=== PATIENT | female | born 1990 | race Caucasian/White ===

== ENCOUNTER 2024-04-13 12:54 | Emergency (ER) | payer OTHER, SELFPAY ==
[2024-04-13] VITALS (11 sets, daily range): BP systolic 113–144; BP diastolic 65–89; PULSE 83–115; RESP 13–22; TEMP 37.1; O2SAT 97–100; BMI 21.2
--- NOTE | 2024-04-13 13:25 | ED_ITS ---
HPI - Neuro Symptoms/Deficit General Chief Complaint: Neuro Symptoms/Deficit Stated Complaint: tingling, numbness in jaw, hx stroke Time Seen by Provider: 04/13/24 13:25 Source: patient Mode of arrival: Ambulatory History of Present Illness HPI Narrative: Patient past medical history of self-reported TIA, comes into the ED from home for evaluation of multiple complaints, she states that she has been experiencing head tingling and jaw tingling ongoing and persistent for the past week week and a half. States that it is intermittent nature, denies any actual weakness or blurry vision. Denies any headache, denies any weakness to lower or upper extremities. She denies any chest pain fever chills nausea vomiting abdominal pain or any other GI/ since time. 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 States that she does not have a neurologist or tmr teacher at this time due to the fact that she had moved here from outside of the [facility] about 1 and half years ago. Not on any blood thinners. At time of initial evaluation patient NIH of 0 no focal deficits On Anticoagulants: No Related Data Allergies Allergy/AdvReac Type Severity Reaction Status Date / Time Sulfa (Sulfonamide Allergy Hives Verified 04/13/24 12:57 Antibiotics) Review of Systems Review of Systems Narrative: HEENT: Denies headache, eye drainage, eye irritation, head trauma, sore throat, voice change, tingling sensation to the head and jaw Cardiovascular: Denies any chest pain, palpitations, shortness of breath, tachycardia Respiratory: Denies any shortness of breath, cough, wheeze, stridor GI/: Denies any abdominal pain, nausea, vomiting, diarrhea, bright red blood per rectum, melanotic stools, urinary frequency, urinary retention, dysuria, hematuria MSK: Denies any joint pain, muscle pains, swelling Skin: Denies any rashes, lesions, discoloration Neuro: Denies any headache, lightheadedness, dizziness, fainting, weakness Psych: Denies SI/HI Hematologic/Lymphatic On Anticoagulants: No Patient History Social History Smoking Status: Current every day smoker Smoking Status: Current every day smoker tobacco type: vaping alcohol intake frequency: a few times a month Substance Use Type: marijuana Exam Narrative Exam Narrative: General: Cooperative, comfortable, well-developed, not in acute distress HEENT: Normocephalic, atraumatic, PERRLA, normal sclera, eyelids normal, Neck: Active full range of motion, atraumatic Chest: Normal to inspection, negative crepitus, no overlying erythema ecchymosis Respiratory: Normal respiratory effort, not in acute respiratory distress, clear to auscultation bilaterally negative cough, wheeze, tachypnea, rhonchi, rales Cardiology: Regular rate rhythm negative gallop, murmur, rubs GI/: Normal to inspection, soft, nonrigid, no tenderness to palpation, exam deferred MSK: Full range of active range of motion of all 4 extremities, atraumatic Skin: No rashes lesions noted Neuro: Alert awake oriented x3, moves all 4 extremities spontaneously, cranial nerves intact, able to answer all questions appropriately follows commands appropriately, NIH of 0 no focal deficits Psych: Cooperative, negative suicidal or homicidal ideations Initial Vital Signs Initial Vital Signs: Vital Signs Temperature 98.8 F 04/13/24 12:57 Pulse Rate 115 H 04/13/24 12:57 Respiratory Rate 20 04/13/24 12:57 Blood Pressure 122/81 04/13/24 12:57 Pulse Oximetry 100 04/13/24 12:57 Oxygen Delivery Method Room Air 04/13/24 12:57 Course Orders Ordered: ED Orders 04/13/24 13:34 CT angio head and neck Stat CT head/brain wo con Stat XR chest 1V Stat EKG-12 Lead Stat 04/13/24 13:49 Basic Metabolic Panel Stat Complete Blood Count AUTO DIFF Stat MAG [Magnesium] Stat Prothrombin Time INR Stat Troponin I Stat Discontinued Medications Sodium Chloride (Normal Saline 0.9%) 1,000 mls @ 150 mls/hr IV CONT DARCY Last Infusion: 04/13/24 17:25 Dose: Infused Documented By: Admin: 04/13/24 14:10 Dose: 150 mls/hr Documented By: RUSTY Lorazepam (Lorazepam 2 Mg/Ml Inj) 0.5 mg IV NOW ONE Stop: 04/13/24 13:35 Last Admin: 04/13/24 14:09 Dose: 0.5 mg Documented By: RUSTY Vital Signs Vital signs: Vital Signs - 8 hr 04/13/24 12:57 04/13/24 13:58 04/13/24 14:00 Temperature 98.8 F Pulse Rate 115 H 111 H 99 H Respiratory Rate 20 22 13 Blood Pressure 122/81 Pulse Oximetry 100 100 100 Oxygen Delivery Method Room Air 04/13/24 14:00 04/13/24 14:30 04/13/24 14:30 Temperature Pulse Rate 98 H Respiratory Rate 21 Blood Pressure 134/89 127/85 Pulse Oximetry 100 Oxygen Delivery Method 04/13/24 15:00 04/13/24 15:30 04/13/24 15:47 Temperature Pulse Rate 109 H 96 H 111 H Respiratory Rate 15 Blood Pressure Pulse Oximetry 100 100 100 Oxygen Delivery Method 04/13/24 15:47 04/13/24 15:53 04/13/24 15:53 Temperature Pulse Rate 103 H Respiratory Rate 21 Blood Pressure 136/65 144/70 H Pulse Oximetry 100 Oxygen Delivery Method 04/13/24 16:00 04/13/24 16:00 04/13/24 16:30 Temperature Pulse Rate 90 97 H Respiratory Rate 14 Blood Pressure 125/74 Pulse Oximetry 99 100 Oxygen Delivery Method 04/13/24 16:30 04/13/24 17:00 04/13/24 17:00 Temperature Pulse Rate 83 Respiratory Rate 16 Blood Pressure 129/79 113/71 Pulse Oximetry 97 Oxygen Delivery Method Room Air MDM - Neuro Symptoms/Deficit Differential Diagnosis Differential diagnosis: Likely cerebrovascular accident and other (Electrolyte abnormality) Lab Data 04/13/24 13:49 04/13/24 13:49 Labs: Lab Results 04/13/24 Range/Units 13:49 WBC 7.3 (4.5-11.0) X10^3/uL RBC 4.50 (4.0-5.2) X10^6/uL Hgb 14.1 (12.0-16.0) g/dL Hct 41.7 (36-46) % MCV 92.6 (80-100) fL MCH 31.3 (26-34) PG MCHC 33.8 (30-36) % RDW 13.0 (11.6-14.8) % Plt Count 210 (150-400) X10^3/uL Neut % (Auto) 72.3 (50-75) % Lymph % (Auto) 21.5 L (25-40) % [place] % (Auto) 4.6 (3-14) % Eos % (Auto) 0.7 L (2-4) % Baso % (Auto) 0.9 (0-2) % Neut # (Auto) 5300 (6778-2026) /uL Lymph # (Auto) 1600 (5811-2045) /uL [place] # (Auto) 300 (0-900) /uL Eos # (Auto) 100 (0-450) /uL Baso # (Auto) 100 (0-100) /uL PT 12.4 (9.4-12.5) SECONDS INR 1.1 (0.9-1.3) Sodium 138 (137-145) mmol/L Potassium 3.7 (3.4-5.1) mmol/L Chloride 104 (98-107) mmol/L Carbon Dioxide 21 L (22-32) mmol/L BUN 10 (7-17) mg/dL Creatinine 0.84 (0.52-1.04) mg/dL Estimated GFR > 60 (>60) mL/min BUN/Creatinine Ratio 11.9 (6-22) Glucose 111 H (70-100) mg/dL Calcium 9.7 (8.4-10.2) mg/dL Magnesium 2.2 (1.6-2.3) mg/dL Troponin I < 0.012 (0.01-0.034) ng/mL Point of Care Testing Test Results Negative Urine Dip Bedside Urine Glucose Negative Bedside Urine Bilirubin - Negative Bedside Urine Ketone - Negative Urine Specific [place] 1.020 Bedside Urine Occult Blood - Negative Bedside Urine pH 6.0 Bedside Urine Protein - Negative Bedside Urine Urobilinogen - Negative Bedside Urine Nitrite - Negative Bedside Urine Leukocytes - Negative Esterase MDM Narrative Medical decision making narrative: Patient is a 33-year-old female past medical history of CVA, comes into the ED from home for evaluation of facial tingling sensation. States this has been ongoing and persistent for the past several days but has been intermittent nature, states that today it was worse and persisted therefore decided come into the ED for further evaluation treatment. On exam patient NIH of 0, no focal deficits. Lab work and imaging was unremarkable for any acute findings, patient states that she has not seen a neurologist since she moved here, informed her of need for follow-up with outpatient neurology PCP she verbalized understanding of this and agrees to being discharged home with outpatient follow-up. Discharge Plan Departure Patient Disposition: Home Clinical Impression: Facial tingling Activity Restrictions/Additional Instructions: Please follow-up with neurology for continued evaluation treatment of your symptoms Stand Alone Forms: Patient Portal/API
--- NOTE | 2024-04-13 13:34 | DI.CT.S_ITS ---
PROCEDURE: CT HEAD/BRAIN WO CON INDICATIONS: Headache, facial numbness TECHNIQUE: Noncontrast 4.5 mm thick angled axial sections acquired from the foramen magnum to the vertex, with coronal and sagittal reformats. For radiation dose reduction, the following was used: automated exposure control, adjustment of mA and/or kV according to patient size. COMPARISON: None. FINDINGS: Image quality: Diagnostic. CSF spaces: Basal cisterns are patent. No extra-axial fluid collections. Ventricles are normal in size and shape. Brain: No midline shift. No intracranial masses or hemorrhage. [place]-white matter interface is normal. Old focal right PICA distribution cerebellar infarct with resultant encephalomalacia. Skull and face: Calvarium and visualized facial bones are intact, without suspicious lesions. Sinuses: Visualized sinuses and mastoids are clear. IMPRESSION: 1. No acute intracranial pathology. 2. 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 Dictated by: Isra Elliott M.D. on 04/13/2024 at 15:50 Approved by: Isra Elliott M.D. on 04/13/2024 at 15:52
--- NOTE | 2024-04-13 13:34 | DI.RAD.S_ITS ---
PROCEDURE: XR CHEST 1V INDICATIONS: Dizziness TECHNIQUE: One view of the chest was acquired. COMPARISON: None. FINDINGS: Surgical changes and devices: None. Lungs and pleura: Lungs are clear. No pleural effusions or pneumothorax. Mediastinum: Mediastinal contours appear normal. Heart size is normal. Bones and chest wall: No suspicious bony lesions. Overlying soft tissues appear unremarkable. IMPRESSION: No acute cardiopulmonary abnormality is seen. Dictated by: Isra Elliott M.D. on 04/13/2024 at 14:12 Approved by: Isra Elliott M.D. on 04/13/2024 at 14:12
--- NOTE | 2024-04-13 13:34 | DI.CT.S_ITS ---
PROCEDURE: CT ANGIO HEAD AND NECK INDICATIONS: Headache, facial numbness, history of vertebral stenosis TECHNIQUE: After the administration of intravenous contrast, 1 mm thick sections acquired from the aortic arch through the [place] of [place]. 3-dimensional ewmwnne-yaocwtogj-jaejvfdjao (MIP) and/or volume rendering reformats were acquired of the central intracranial vasculature and neck separately. For radiation dose reduction, the following was used: automated exposure control, adjustment of mA and/or kV according to patient size. COMPARISON: [facility], CT, CT HEAD/BRAIN WO [facility], 04/13/2024, 14:39. FINDINGS: Image quality: Diagnostic. BRAIN: CSF spaces: Ventricles are normal in size and shape. Basal cisterns are patent. No extra-axial fluid collections. Brain: Old right PICA distribution inferior cerebellar infarct. Skull and face: Calvarium and facial bones appear intact, without suspicious lesions. Orbits appear normal. Sinuses: Sinuses and mastoids are clear. HEAD CT ANGIOGRAPHY: Anterior circulation: Intracranial internal carotid arteries are normal in size and flow. The flow within the paired anterior cerebral arteries is normal and symmetric. The flow within the middle cerebral arteries is normal and symmetric. The anterior communicating artery is seen. No aneurysms are seen. Posterior circulation: Right vertebral artery is dominant and widely patent giving rise to a normal caliber right basilar artery. Left vertebral artery is normal variant diminutive, ending in PICA. Flow within the posterior cerebral arteries is normal and symmetric. No aneurysms are seen. NECK CT ANGIOGRAPHY: Carotid system: The great vessels demonstrate a conventional anatomy as they arise from the aortic arch. The origins of the common carotid arteries appear patent. The common carotid arteries demonstrate normal caliber and courses. The bifurcation regions are both widely patent. The internal carotid arteries demonstrate normal calibers and courses. Posterior circulation: Widely patent right vertebral artery gives rise to the basilar artery. No stenosis. Left vertebral artery is diffusely diminutive, ending in PICA. Soft tissues: Visualized neck soft tissues demonstrate no suspicious abnormalities. Bones: No suspicious bony lesions. Visualized cervical spine appears normally aligned. IMPRESSION: No significant intracranial arterial abnormality is seen. No significant abnormality is seen within the arteries of the neck. 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 Any quantitative measurements of stenosis were performed using NASCET criteria. Dictated by: Isra Elliott M.D. on 04/13/2024 at 16:00 Approved by: Isra Elliott M.D. on 04/13/2024 at 16:04
--- NOTE | 2024-04-13 13:50 | EKG_ITS ---
[address] [address] Test Date: 2024-04-13 Pat Name: Shelia Cameron Department: [facility] Room: Gender: Female [employer] Supervisor: KRAIG : 1990 Requested By: Order Number: [id number] Reading MD: Roverto Santo Measurements Intervals [place] Rate: 116 P: 83 GA: 120 QRS: 88 QRSD: 72 T: 61 QT: 318 QTc: 442 Interpretive Statements Sinus tachycardia Electronically Signed On 04-18-2024 9:11:46 PDT by Roverto Santo
[2024-04-13] MEDS: LORazepam 2 MG/ML INJ 0.5 MG IV (14:09)
[2024-04-13] MEDS: SODIUM CHLORIDE 0.9% 1,000 ML 150 ML IV (14:10)
[2024-04-13 14:20] LABS: Add Manual Diff / Slide Review NO; Basophils Absolute Auto 100 /uL (0-100); Basophils Percent Auto 0.9 % (0-2); Eosinophils Absolute Auto 100 /uL (0-450); Eosinophils Percent Auto 0.7 % (2-4); Hematocrit 41.7 % (36-46); Hemoglobin 14.1 g/dL (12.0-16.0); Lymphocytes Absolute Auto 1600 /uL (1100-4500); Lymphocytes Percent Auto 21.5 % (25-40); Mean Corpuscular HGB Conc 33.8 % (30-36); Mean Corpuscular Hemoglobin 31.3 PG (26-34); Mean Corpuscular Volume 92.6 fL (80-100); Monocytes Absolute Auto 300 /uL (0-900); Monocytes Percent Auto 4.6 % (3-14); Neutrophils Absolute Auto 5300 /uL (1500-7000); Neutrophils Percent Auto 72.3 % (50-75); Platelet Count 210 X10^3/uL (150-400); White Blood Cell Count 7.3 X10^3/uL (4.5-11.0)
[2024-04-13 14:26] LABS: INR 1.1 (0.9-1.3); Prothrombin Time 12.4 SECONDS (9.4-12.5)
[2024-04-13 14:30] LABS: BUN Creatinine Ratio 11.9 (6-22); Blood Urea Nitrogen 10 mg/dL (7-17); Calcium 9.7 mg/dL (8.4-10.2); Carbon Dioxide 21 mmol/L (22-32); Chloride 104 mmol/L (98-107); Estimated Glomerular Filt Rate > 60 mL/min (>60); Glucose 111 mg/dL (70-100); HEMOLYSIS 21 (0-50); Potassium 3.7 mmol/L (3.4-5.1); Sodium 138 mmol/L (137-145)
[2024-04-13 14:32] LABS: Magnesium 2.2 mg/dL (1.6-2.3)
[2024-04-13 14:54] LABS: Troponin I < 0.012 ng/mL (0.01-0.034)
== END 2024-04-13 17:35 | disposition home or self-care (01) ==
PROVIDERS: Emergency Provider Student in an Organized Health Care Education/Training Program
DX: R20.2 Paresthesia of skin (principal); R51.9 Headache, unspecified; R42 Dizziness and giddiness
CPT/HCPCS: 36415; 70450; 70496; 70498; 71045; 80048; 81003; 81025; 83735; 84484; 85025; 85610; 93005; 96361; 96374; 99284; J2060; Q9967